=== PATIENT | female | born 1985 | race Caucasian/White ===

== ENCOUNTER 2018-10-20 10:05 | Day surgery (SDC) | payer OTHER, SELFPAY ==
--- NOTE | 2018-10-12 13:06 | PCM.HP.BLA ---
History and Physical Date of Admission: 10/20/18 Pre-Op History and Physical ? HPI: The patient is a 32 year old female presenting for pre-operative visit. She is scheduled for?TVT with cystoscopy, for?CRALOS on?10/20/18. ??Procedure discussed along with risks, benefits and complications. ?Other alternatives discussed for management. Consent form signed??Yes.? PAST?MEDICAL?HISTORY PAST MEDICAL HISTORY Diagnosis Date ? Asthma ? ? Depression ? ? Hypercholesteremia ? ? Migraine headache ? ? Nephrolithiasis 12/2012 ? [facility] ?Sepsis and emergency surgery after occulsion. ? OCD (obsessive compulsive disorder) ? ? Vitamin D deficiency ? ? ? PAST?SURGICAL?HISTORY PAST SURGICAL HISTORY Procedure Laterality Date ? [facility] ? 12/28/2012 ? [facility] ? LASIK ? 2007 ? b/l ? PAST SURGICAL HISTORY OF ? 2012 ? Kidney stone stent and lithotripsy ? ? CURRENT?MEDICATIONS ? Current Outpatient Medications: FLUoxetine (PROZAC) 20 mg capsule Take 1 capsule by mouth once daily. Disp: 90 capsule Rfl: 2 buPROPion XL (WELLBUTRIN XL) 300 mg 24 hr tablet Take 1 tablet by mouth once daily. STARTING while tapering off Effexor (replacing Effexor) Disp: 90 tablet Rfl: 0 FLUoxetine (PROZAC) 10 mg capsule Take 1 capsule by mouth once daily. Take with 20 mg Prozac dose to total 30 mg a day Disp: 90 capsule Rfl: 3 fluticasone (FLONASE) 50 mcg/actuation nasal spray Use 2 Sprays in each nostril once daily. Rinse mouth after use. Disp: 1 Bottle Rfl: 11 ketoconazole (NIZORAL) 2 % shampoo Apply 1 application to affected area once daily as needed. Disp: 120 mL Rfl: 0 copper (PARAGARD T 380A) 380 square mm intrauterine device INSERTED IN THE OFFICE Disp: 1 Intra Uterine Device Rfl: 0 nitrofurantoin monohydrate and macrocrystal (MACROBID) 100 mg capsule Take 1 capsule by mouth twice daily for 3 days. Disp: 6 capsule Rfl: 0 ? No current facility-administered medications for this visit.? ? ALLERGIES:?Patient has no known allergies. ? PERSONAL HISTORY:? SOCIAL?HISTORY Social History ??Socioeconomic History ?Marital status: ?Spouse name: Not on file ?Number of children: 2 ?Years of education: Not on file ?Highest education level: Not on file ??Social Needs ?Financial resource strain: Not on file ?Food insecurity - worry: Not on file ?Food insecurity - inability: Not on file ?Transportation needs - medical: Not on file ?Transportation needs - non-medical: Not on file ??Occupational History ?Occupation: Rn ?Employer: [employer] ??Tobacco Use ?Smoking status: Never Smoker ?Smokeless tobacco: Never Used ??Substance and Sexual Activity ?Alcohol use: Yes ?Comment: Rare drink a few times a year ?Drug use: No ?Sexual activity: Yes ?Partners: Male ? 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 FAMILY HISTORY:? FAMILY?HISTORY FAMILY HISTORY Problem Relation Age of Onset ? Diabetes Mother ? ? Asthma Mother ? ? Hypertension Mother ? ? DVT Mother ? ? Ischemic Heart Disease Mother ? ? other (pulmonary embolism) Mother ? ? Diabetes Father ? ? Asthma Father ? ? Coronary Artery Disease Father ?triple bypass at 39 ? DVT Father ? ? Ischemic Heart Disease Father ? ? other (pulmonary embolism) Father ? ? other (morbid obesity) Sister ?had gastric bypass. ? DVT Maternal Grandmother ? ? other (pulmonary embolism) Maternal Grandmother ? ? Cancer Maternal Grandfather ?prostate ? DVT Maternal Grandfather ? ? Cancer Paternal Grandfather ?prostate ? Ischemic Heart Disease Paternal Grandfather ? ? REVIEW OF SYMPTOMS: GENERAL: denies fevers or chills ENDOCRINOLOGY: has not been on steroids Cardiology : denies palpitations or chest pain Respiratory: denies SOB or cough Hematology: denies history of prolonged bleeding or easy bruising or VTE Allergy: Denies history of personal or family history of allergy to anesthesia ? ? PHYSICAL EXAMINATION: ? VITALS:?Blood pressure 120/78, pulse 68, resp. rate 18, height 5' 7.32 (1.71 m), weight 225 lb (102.1 kg). ? GENERAL:??The patient is well nourished, well hydrated in no acute distress. ?, The patient is oriented to time, place, and person. NECK:?Supple. No lynphadenopathy, normal thyroid, no thyromegaly. LUNGS:?Clear to auscultation bilaterally. no wheezes, rhonchi or rales HEART:?Regular rate and rhythm, Normal heart sounds and No murmurs or gallops ? IMPRESSION:?CARLOS ? PLAN:???The risks/benefits/alternatives and personal involved for the planned?midurethral sling with cystoscopy?were reviewed with the patient. Her questions were answered to her satisfaction and she desires to proceed. ?Consent was signed. ?I reviewed with her postop instructions and expectations. Short and halfway risks of mesh reviewed including chance of recurrent urinary dysfunction or need for removal. ?Postop restrictions/expecations reviewed. ?Macrobid/NSAIDs postop. ? ? I have reviewed and updated past medical and surgical history, medications and allergies? This H&P done in my office on 10/12/18 Katharine Payton M.D.
[2018-10-20] VITALS (7 sets, daily range): BP systolic 102–132; BP diastolic 56–81; PULSE 80–92; RESP 14–18; TEMP 36.8–37.1; O2SAT 94–100; BMI 34.7
[2018-10-20 10:44] LABS: Hematocrit 39.3 % (37-47); Hemoglobin 12.9 g/dl (12.0-15.0); Mean Corp Hgb Conc 32.8 g/gl (32-36); Mean Corpuscular Hgb 29.9 pg (27.0-32.0); Mean Platelet Vol. 10.1 fl (6.2-12.0); Platelet Count 290 K/mm3 (150-450); RBC Distribution Width CV 13.5 % (11.6-14.6); Red Blood Count 4.32 M/mm3 (4.2-5.4); Scan Indicated on CBC? Y/N NO; White Blood Count 7.3 K/mm3 (4.4-11.0)
[2018-10-20] MEDS: Cefazolin 2 GM in 0.9% Normal Saline 100 ML IV (13:58)
--- NOTE | 2018-10-20 14:09 | DCINST_ITS ---
You will use the following diet at home:: No restrictions Discharge Activity: Return to Normal Activity, May Drive - so long as pain is c ontrolled and you are not taking narcotic pain meds, May Shower May resume sexual activity in: 4-6 weeks Lifting Restrictions: 20 Call your doctor if you observe: Fever of 101 or Higher, Inability to urinate, Using more than one pad per hour, Uncontrolled pain Allergies/Adverse Reactions: Allergies No Known Allergies Allergy (Verified 10/13/18 12:36) Medications to take at Discharge Bupropion HCl [Wellbutrin Sr] 300 mg PO DAILY 10/13/18 Fluoxetine [Prozac] 10 mg PO DAILY 10/13/18 Fluoxetine [Prozac] 20 mg PO DAILY 10/13/18 Ibuprofen 200 mg PO Q4H PRN 10/13/18 Phentermine HCl [Adipex-P] 18.75 mg PO DAILY 10/13/18 Spironolactone [Aldactone] 100 mg PO DAILY 10/13/18 Primary Care Physician: Osmani Liang DO [Primary Care Provider] - Test Results: Test results from this visit will be discussed in further detail at your follow- up appointment, if applicable. Please Follow Up With: Katharine Payton MD When: as scheduled
--- NOTE | 2018-10-20 14:55 | PCM.OPRPT ---
Report of Operation Date of Procedure: 10/20/18 Pre-Operative Diagnosis: CARLOS Post-Operative Diagnosis: same Surgery/Procedure Performed:: TVT midurethral sling Description of Surgical Findings:: normal vagina, urethra and bladder offset printer: None Type of Anesthesia:: General Anesthesiologist: Kylie Brock Special Medications: none Specimen's removed: none Drains: none Estimated Blood Loss (mL): 30 Description of Procedure: The TVT procedure was then performed. Mid urethra was identified and the vaginal epithelium under it was grasped with Priyanka clamps and the vaginal epithelium was infiltrated with 1% Xylocaine with dilute epinephrine solution. An incision was made under the mid urethra and dissected laterally under the pubic ramus on both sides. The midline at the symphysis pubis was marked and then 2 cm on each side was marked with a marking pen. I hydrodissected behind the symphysis with 30 cc of injectable saline on both sides of the midline. After guide was used to remove the bladder to the patient's left side and the right trocar was placed with the TVT trocar. This was walked up behind the symphysis aiming towards the ipsilateral shoulder until I exited in the skin 2 cm to left of the midline directly cephalad to the pubic ramus. The bladder was taken to the opposite side and the left trocar was advanced in a similar fashion behind the symphysis pubis and out through the skin where it had been marked with a marker. A cystoscopy was then performed at this time. The bladder was intact. There were no perforations. Both ureteral jets were noted. Cystoscopy was ended. The sling was secured up against the mid urethra using the Metzenbaum scissors as a spacer so as not to impinge upon the urethra. The excess mesh was trimmed at the suprapubic incisions and those incisions were closed with skin glue. The vaginal epithelium overlying the mesh was reapproximated with 2-0 Vicryl suture. Mesh was lying flat against the mid urethra and no buttonholing of the vagina in either vaginal fornix was noted. Vaginal sweep was completed by me. Grafts/Implants Used: TVT exact midurethral sling - Complications none - Admit VTE Documentation VTE Present on Admission: No VTE Mechan Device Prophylaxis: SCD's VTE Pharm Prophylaxis ordered?: No Reason prophylaxis not ordered:: Treatment Not Indicated
--- NOTE | 2018-10-20 14:59 | OP.PCM_ITS ---
Report of Operation Date of Procedure: 10/20/18 Pre-Operative Diagnosis: CARLOS Post-Operative Diagnosis: same Surgery/Procedure Performed:: TVT midurethral sling Description of Surgical Findings:: normal vagina, urethra and bladder senior program analyst: None Type of Anesthesia:: General Anesthesiologist: Kylie Brock Special Medications: none Specimen's removed: none Drains: none Estimated Blood Loss (mL): 30 Description of Procedure: The TVT procedure was then performed. Mid urethra was identified and the vaginal epithelium under it was grasped with Priyanka clamps and the vaginal epithelium was infiltrated with 1% Xylocaine with dilute epinephrine solution. An incision was made under the mid urethra and dissected laterally under the pubic ramus on both sides. The midline at the symphysis pubis was marked and then 2 cm on each side was marked with a marking pen. I hydrodissected behind the symphysis with 30 cc of injectable saline on both sides of the midline. After guide was used to remove the bladder to the patient's left side and the right trocar was placed with the TVT trocar. This was walked up behind the symphysis aiming towards the ipsilateral shoulder until I exited in the skin 2 cm to left of the midline directly cephalad to the pubic ramus. The bladder was taken to the opposite side and the left trocar was advanced in a similar fashion behind the symphysis pubis and out through the skin where it had been marked w ith a marker. A cystoscopy was then performed at this time. The bladder was intact. There were no perforations. Both ureteral jets were noted. Cystoscopy was ended. The sling was secured up against the mid urethra using the Metzenbaum scissors as a spacer so as not to impinge upon the urethra. The excess mesh was trimmed at the suprapubic incisions and those incisions were closed with skin glue. The vaginal epithelium overlying the mesh was reapproximated with 2-0 Vicryl suture. Mesh was lying flat against the mid urethra and no buttonholing of the vagina in either vaginal fornix was noted. Vaginal sweep was completed by me. Grafts/Implants Used: TVT exact midurethral sling - Complications none - Admit VTE Documentation VTE Present on Admission: No VTE Mechan Device Prophylaxis: SCD's VTE Pharm Prophylaxis ordered?: No Reason prophylaxis not ordered:: Treatment Not Indicated
== END 2018-10-20 16:48 | disposition home or self-care (01) ==
LOC: SDC 10:05 → AC 10:08
PROVIDERS: Family Provider Student in an Organized Health Care Education/Training Program; PCP Student in an Organized Health Care Education/Training Program; Referring Provider Obstetrics & Gynecology; Visit Provider Obstetrics & Gynecology
PROC: 0TJB8ZZ Inspection of Bladder, Via Natural or Artificial Opening Endoscopic (ICD-10-PCS; CPT 57288; principal; 2018-10-20 11:30)
DX: N39.3 Stress incontinence (female) (male) (principal); J45.909 Unspecified asthma, uncomplicated; F42.9 Obsessive-compulsive disorder, unspecified; F32.9 Major depressive disorder, single episode, unspecified; Z79.899 Other long term (current) drug therapy
CPT/HCPCS: 00860; 57288; C1781; 36415; 85027; J7120